=== PATIENT | female | born 1995 | race Caucasian/White ===

== ENCOUNTER 2023-07-19 05:55 | Emergency (ER) | payer OTHER ==
[~2023-07-19] VITALS: Ht 154.9 cm; Wt 63.5 kg
[2023-07-19 05:58] VITALS: O2SAT 100
[2023-07-19] MEDS ORDERED: LORazepam 2 MG/ML VIAL IVP ONE (06:00)
[2023-07-19] MEDS ORDERED: LORazepam 2 MG/ML VIAL ONE (06:00)
[2023-07-19 06:10] VITALS: BP 153/100; PULSE 59; RESP 13; TEMP 98; O2SAT 99
[2023-07-19] MEDS ORDERED: levETIRAcetam 100 MG/ML VIAL IV ONE (06:14)
[2023-07-19] MEDS: NACL 0.9% 1,000 ML IV ONE (06:16)
[2023-07-19] MEDS: ONDANSETRON 4 MG/2 ML VIAL IVP ONE ×2 (06:18→07:37)
[2023-07-19] MEDS: levETIRAcetam 1,000 MG in NACL 0.9% 100 ML IV ONE (06:18)
[2023-07-19] MEDS: LORazepam 2 MG/ML VIAL IM ONE (06:19)
[2023-07-19] MEDS: LORazepam 2 MG/ML VIAL IVP ONE (06:33)
[2023-07-19 06:43] LABS: BASOPHILS # (AUTO) 0.1 K/uL (0.00-0.22); BASOPHILS % (AUTO) 0.9 % (0.0-2.0); EOSINOPHILS # (AUTO) 0.4 K/uL (0-0.4); EOSINOPHILS % (AUTO) 3.1 % (0.0-4.0); HEMATOCRIT 44.7 % (36-48); HEMOGLOBIN 15.1 g/dL (12.0-16.0); LYMPHOCYTES # (AUTO) 2.7 K/uL (2.5-16.5); LYMPHOCYTES % (AUTO) 22.3 % (20.5-51.1); MEAN CORPUSCULAR HEMOGLOBIN 28 pg (27-31); MEAN CORPUSCULAR HGB CONC 34 g/dL (33-37); MEAN CORPUSCULAR VOLUME 83.3 fL (80-94); MONOCYTES # (AUTO) 0.7 K/uL (0.8-1.0); MONOCYTES % (AUTO) 5.9 % (1.7-9.3); NEUTROPHILS # (AUTO) 8.3 K/uL (1.8-7.7); NEUTROPHILS % (AUTO) 67.8 % (42.2-75.2); PLATELET COUNT (AUTO) 277 K/uL (140-450); RED BLOOD CELL COUNT(AUTO) 5.37 MIL/uL (4.20-5.40); RED CELL DISTRIBUTION WIDTH 12.9 % (11.6-13.7); WHITE BLOOD COUNT (AUTO) 12.2 K/uL (4.8-10.8)
[2023-07-19 06:54] LABS: ANION GAP 16.3 (8-16); CALCIUM 8.9 mg/dL (8.5-10.1); CARBON DIOXIDE 21.3 mmol/L (21-32); CREATININE 0.8 mg/dL (0.6-1.3); POTASSIUM 3.6 mmol/L (3.5-5.1)
[2023-07-19 07:10] LABS: CREATINE KINASE, TOTAL 99 U/L (26-192)
[2023-07-19 07:27] LABS: ALCOHOL, BLOOD < 3 mg/dL (<10)
[2023-07-19 07:31] LABS: FLU A ANTIGEN negative (NEGATIVE); FLU B ANTIGEN negative (NEGATIVE)
[2023-07-19 08:29] LABS: MAGNESIUM 1.8 mg/dL (1.8-2.4)
[2023-07-19 08:52] LABS: APPEARANCE,URINE CLEAR (CLEAR); BILIRUBIN,URINE NEGATIVE (NEGATIVE); BLOOD, URINE NEGATIVE (NEGATIVE); COLOR,URINE YELLOW (YELLOW); LEUKOCYTE ESTERASE ,URINE NEGATIVE (NEGATIVE); NITRITE, URINE NEGATIVE (NEGATIVE); PROTEIN,URINE NEGATIVE (NEGATIVE); UGLUCOSE NEGATIVE (NEGATIVE); UROBILINOGEN,URINE 0.2 EU/dL (0.2 - 1)
[2023-07-19 09:22] LABS: CANNABINOID, URINE POSITIVE ng/mL (NEG <=50); OPIATE, URINE POSITIVE ng/mL (NEG <=2000)
[2023-07-19 09:23] LABS: AMPHETAMINE, URINE NEGATIVE ng/ml (NEG <=1000); BARBITURATE, URINE NEGATIVE ng/ml (NEG <=200); BENZODIAZEPINE, URINE POSITIVE ng/mL (NEG <=200); COCAINE, URINE NEGATIVE ng/mL (NEG <=300); PHENCYCLIDINE SCREEN,URINE NEGATIVE ng/mL (NEG <=25)
[2023-07-19] MEDS ORDERED: LEVE1000 PO (12:58)
[2023-07-19 13:08] VITALS: BP 144/88; PULSE 69; RESP 17; TEMP 97.9; O2SAT 100
== END 2023-07-19 13:08 | disposition home or self-care (01) ==
LOC: MED 05:55
DX: R56.9 Unspecified convulsions (principal); F11.10 Opioid abuse, uncomplicated; Z20.822 Contact with and (suspected) exposure to COVID-19; Z91.148 Patient's other noncompliance with medication regimen for other reason; Z79.899 Other long term (current) drug therapy; Z88.0 Allergy status to penicillin; Z88.6 Allergy status to analgesic agent
CPT/HCPCS: 36415; 70450; 71045; 80048; 80305; 81003; 81025; 82550; 83735; 84100; 84484; 85025; 87426; 87804; 93005; 96365; 96372; 96375; 96376; 99285; G0482; J1953; J2060; J2405; J7030

== ENCOUNTER 2023-12-11 18:28 | Emergency (ER) | payer OTHER ==
[~2023-12-11] VITALS: Ht 162.6 cm; Wt 68.0 kg
[~2023-12-11 18:28] MED LIST: LEVE1000 PO
[2023-12-11 18:30] VITALS: BP 113/70; PULSE 83; RESP 13; TEMP 99; O2SAT 99
[2023-12-11] MEDS: levETIRAcetam 500 MG TAB PO ONE (18:58)
[2023-12-11] MEDS: LORazepam 1 MG TAB PO ONE (18:58)
[2023-12-11 19:30] VITALS: BP 113/70; PULSE 73; RESP 13; TEMP 99
[2023-12-11 19:35] VITALS: O2SAT 99
== END 2023-12-11 20:13 | disposition home or self-care (01) ==
LOC: MED 18:28
DX: G40.509 Epileptic seizures related to external causes, not intractable, without status epilepticus (principal); F41.9 Anxiety disorder, unspecified; Z79.899 Other long term (current) drug therapy; Z88.0 Allergy status to penicillin; Z88.6 Allergy status to analgesic agent
CPT/HCPCS: 99283

== ENCOUNTER 2024-02-26 16:26 | Inpatient (IN) | payer OTHER ==
[~2024-02-26] VITALS: Ht 162.6 cm; Wt 68.0 kg
[2024-02-26] MEDS ORDERED: LORazepam 2 MG/ML VIAL ONE (16:49)
[2024-02-26] MEDS ORDERED: ONDANSETRON 4 MG/2 ML VIAL ONE (16:53)
[2024-02-26] MEDS ORDERED: levETIRAcetam 100 MG/ML VIAL IV ONE (17:03)
[2024-02-26 17:04] VITALS: BP 130/69; PULSE 62; RESP 22; O2SAT 93
[2024-02-26 17:06] VITALS: O2SAT 98
[2024-02-26] MEDS: levETIRAcetam 1,500 MG in NACL 0.9% 100 ML IV ONE (17:16)
[2024-02-26 17:18] LABS: BASOPHILS % (AUTO) 0.5 % (0.0-2.0); EOSINOPHILS % (AUTO) 0.1 % (0.0-4.0); HEMATOCRIT 43.6 % (36-48); HEMOGLOBIN 14.4 g/dL (12.0-16.0); LYMPHOCYTES # (AUTO) 0.7 K/uL (2.5-16.5); MEAN CORPUSCULAR HEMOGLOBIN 28 pg (27-31); MEAN CORPUSCULAR HGB CONC 33 g/dL (33-37); MEAN CORPUSCULAR VOLUME 84.6 fL (80-94); MONOCYTES # (AUTO) 0.2 K/uL (0.8-1.0); MONOCYTES % (AUTO) 1.9 % (1.7-9.3); NEUTROPHILS # (AUTO) 8.1 K/uL (1.8-7.7); NEUTROPHILS % (AUTO) 89.9 % (42.2-75.2); PLATELET COUNT (AUTO) 244 K/uL (140-450); RED BLOOD CELL COUNT(AUTO) 5.15 MIL/uL (4.20-5.40)
[2024-02-26 17:28] LABS: LYMPHOCYTES % (AUTO) 7.6 % (20.5-51.1)
[2024-02-26 17:33] LABS: ANION GAP 13.8 (8-16); CALCIUM 8.4 mg/dL (8.5-10.1); CARBON DIOXIDE 23.4 mmol/L (21-32); CREATININE 0.7 mg/dL (0.6-1.3); POTASSIUM 3.2 mmol/L (3.5-5.1)
[2024-02-26 17:37] LABS: BILIRUBIN,DIRECT 0.1 mg/dL (0.0-0.3); TOTAL BILIRUBIN 0.5 mg/dL (0.0-1.0); TOTAL PROTEIN, SERUM 7.5 g/dL (6.4-8.2)
[2024-02-26 17:51] LABS: ACETAMINOPHEN < 0.5 ug/ml (10-30); ALCOHOL, BLOOD < 3 mg/dL (<10); SALICYLATE < 2.8 mg/dL (2.8-20.0)
[2024-02-26 18:05] LABS: AMPHETAMINE, URINE NEGATIVE ng/ml (NEG <=1000); BARBITURATE, URINE NEGATIVE ng/ml (NEG <=200); BENZODIAZEPINE, URINE POSITIVE ng/mL (NEG <=200); CANNABINOID, URINE POSITIVE ng/mL (NEG <=50); COCAINE, URINE NEGATIVE ng/mL (NEG <=300)
[2024-02-26 18:06] LABS: OPIATE, URINE NEGATIVE ng/mL (NEG <=2000); PHENCYCLIDINE SCREEN,URINE NEGATIVE ng/mL (NEG <=25)
[2024-02-26] MEDS: LORazepam 2 MG/ML VIAL IM STA (18:14)
[2024-02-26] MEDS ORDERED: MORPHINE SULFATE 4 MG/ML SYR IVP PRN (19:10)
[2024-02-26] MEDS ORDERED: HYDROcodone/APAP 5/325 MG 1 TAB TAB PO PRN (19:10)
[2024-02-26] MEDS ORDERED: MAGNESIUM OXIDE 400 MG TAB PO PRN (19:10)
[2024-02-26] MEDS ORDERED: ACETAMINOPHEN 325 MG TAB PO PRN (19:10)
[2024-02-26] MEDS ORDERED: POTASSIUM CHLORIDE 10 MEQ TABER PO PRN (19:10)
[2024-02-26] MEDS ORDERED: MAG SULF 2000 MG/WATER PREMIX 50 ML IV PRN (19:10)
[2024-02-26] MEDS: NACL 0.9% 1,000 ML IV SCH (19:52)
[2024-02-26 20:11] VITALS: O2SAT 98
[2024-02-26] MEDS ORDERED: levETIRAcetam 1,500 MG in NACL 0.9% 100 ML IV SCH (21:00)
[2024-02-26] MEDS ORDERED: WATER STERILE 10 ML MC ONE (21:20)
[2024-02-26] MEDS: OLANZapine 10 MG VIAL IM PRN (21:28)
[2024-02-26 22:30] VITALS: O2SAT 98
[2024-02-27 00:36] VITALS: O2SAT 98
[2024-02-27] MEDS: ONDANSETRON 4 MG/2 ML VIAL IVP PRN (01:27)
[2024-02-27] MEDS: KCL 20 MEQ IN 100 mL PREMIX 200 ML IV PRN (05:11)
[2024-02-27] MEDS: METOCLOPRAMIDE 10 MG/2 ML INJ VIAL IVP PRN (06:21)
[2024-02-27 07:15] LABS: BASOPHILS % (AUTO) 0.5 % (0.0-2.0); EOSINOPHILS % (AUTO) 0.1 % (0.0-4.0); HEMATOCRIT 44.2 % (36-48); HEMOGLOBIN 14.9 g/dL (12.0-16.0); LYMPHOCYTES # (AUTO) 1.2 K/uL (2.5-16.5); LYMPHOCYTES % (AUTO) 13.9 % (20.5-51.1); MEAN CORPUSCULAR HEMOGLOBIN 28 pg (27-31); MEAN CORPUSCULAR HGB CONC 34 g/dL (33-37); MEAN CORPUSCULAR VOLUME 84.3 fL (80-94); MONOCYTES # (AUTO) 0.5 K/uL (0.8-1.0); MONOCYTES % (AUTO) 5.9 % (1.7-9.3); NEUTROPHILS # (AUTO) 7.1 K/uL (1.8-7.7); NEUTROPHILS % (AUTO) 79.6 % (42.2-75.2); PLATELET COUNT (AUTO) 265 K/uL (140-450); RED BLOOD CELL COUNT(AUTO) 5.25 MIL/uL (4.20-5.40); RED CELL DISTRIBUTION WIDTH 12.7 % (11.6-13.7); WHITE BLOOD COUNT (AUTO) 8.9 K/uL (4.8-10.8)
[2024-02-27 07:30] LABS: MAGNESIUM 1.9 mg/dL (1.8-2.4); PHOSPHORUS 2.6 mg/dL (2.5-4.9)
[2024-02-27 08:34] VITALS: PULSE 58
[2024-02-27 09:08] LABS: ANION GAP 17.1 (8-16); CALCIUM 8.6 mg/dL (8.5-10.1); CARBON DIOXIDE 23.5 mmol/L (21-32); CREATININE 0.6 mg/dL (0.6-1.3); POTASSIUM 3.6 mmol/L (3.5-5.1)
[2024-02-27] MEDS: PANTOPRAZOLE 40 MG INJ VIAL IVP SCH (09:35)
[2024-02-27] MEDS: levETIRAcetam 500 MG TAB PO SCH (09:35)
[2024-02-27 10:19] VITALS: PULSE 58; RESP 16; O2SAT 98
[2024-02-27 12:00] VITALS: BP 160/96; PULSE 57; PULSE 59; RESP 12; TEMP 98.2; O2SAT 100
[2024-02-27] MEDS ORDERED: LEVE1000 PO (14:11)
[2024-02-27 15:30] VITALS: BP 160/96; PULSE 57; RESP 12; TEMP 98.2
[2024-02-27 16:00] VITALS: BP 159/98; PULSE 59; PULSE 63; RESP 16; TEMP 98.1; O2SAT 96
[2024-02-27] MEDS ORDERED: MEDS-TO-BEDS MC SCH (21:00)
== END 2024-02-27 18:55 | disposition left against medical advice (07) | DRG 53 ==
LOC: MED 16:26 → MTU 19:10
PROVIDERS: ADMIT Hospitalist; ATTEND Hospitalist
DX: G40.909 Epilepsy, unspecified, not intractable, without status epilepticus (principal); E87.1 Hypo-osmolality and hyponatremia; R45.851 Suicidal ideations; F12.10 Cannabis abuse, uncomplicated; F32.A Depression, unspecified; Z88.0 Allergy status to penicillin; Z88.8 Allergy status to other drugs, medicaments and biological substances; Z79.899 Other long term (current) drug therapy
CPT/HCPCS: 36415; 70450; 71045; 80048; 80076; 80305; 83690; 83735; 84100; 84702; 85025; 87081; 93005; G0480; G0482; J1953; J2060; J2405; J2470; J2765; J3480; J3490

== ENCOUNTER 2024-02-28 10:02 | Emergency (ER) | payer OTHER ==
[~2024-02-28] VITALS: Ht 170.2 cm; Wt 70.3 kg
[2024-02-28 10:10] VITALS: BP 114/73; PULSE 68; RESP 12; TEMP 98; O2SAT 97
[2024-02-28] MEDS ORDERED: levETIRAcetam 100 MG/ML VIAL IV ONE (10:24)
[2024-02-28] MEDS: levETIRAcetam 1,000 MG in NACL 0.9% 100 ML IV ONE (10:31)
[2024-02-28 11:17] LABS: CALCIUM 8.6 mg/dL (8.5-10.1); CARBON DIOXIDE 26.4 mmol/L (21-32); CREATININE 0.5 mg/dL (0.6-1.3); POTASSIUM 3.1 mmol/L (3.5-5.1)
[2024-02-28 11:22] LABS: ANION GAP 15.7 (8-16)
[2024-02-28] MEDS: LORazepam 2 MG/ML VIAL IVP ONE (12:10)
[2024-02-28 15:51] VITALS: BP 140/91; PULSE 57; RESP 20; TEMP 98.3; O2SAT 97
== END 2024-02-28 15:51 | disposition home or self-care (01) ==
LOC: MED 10:02
DX: G40.509 Epileptic seizures related to external causes, not intractable, without status epilepticus (principal); Z79.899 Other long term (current) drug therapy; Z88.0 Allergy status to penicillin; Z88.6 Allergy status to analgesic agent
CPT/HCPCS: 36415; 80048; 93005; 96365; 96375; 99285; J1953; J2060

== ENCOUNTER 2024-02-29 20:20 | Emergency (ER) | payer OTHER ==
[~2024-02-29] VITALS: Ht 160 cm; Wt 59.0 kg
[2024-02-29 20:23] VITALS: BP 146/92; PULSE 63; RESP 14; TEMP 98.2; O2SAT 97
[2024-02-29] MEDS: NACL 0.9% 1,000 ML IV ONE (21:35)
[2024-02-29] MEDS: ONDANSETRON 4 MG/2 ML VIAL IVP ONE (21:38)
[2024-02-29] MEDS: MORPHINE SULFATE 4 MG/ML SYR IVP ONE (22:28)
[2024-02-29 22:29] LABS: BASOPHILS % (AUTO) 0.5 % (0.0-2.0); EOSINOPHILS % (AUTO) 0.3 % (0.0-4.0); HEMATOCRIT 43.8 % (36-48); HEMOGLOBIN 14.7 g/dL (12.0-16.0); LYMPHOCYTES # (AUTO) 2.4 K/uL (2.5-16.5); MEAN CORPUSCULAR HEMOGLOBIN 28 pg (27-31); MEAN CORPUSCULAR HGB CONC 34 g/dL (33-37); MONOCYTES # (AUTO) 0.7 K/uL (0.8-1.0); MONOCYTES % (AUTO) 9.6 % (1.7-9.3); NEUTROPHILS # (AUTO) 4.3 K/uL (1.8-7.7); NEUTROPHILS % (AUTO) 57.6 % (42.2-75.2); PLATELET COUNT (AUTO) 289 K/uL (140-450); RED BLOOD CELL COUNT(AUTO) 5.22 MIL/uL (4.20-5.40); RED CELL DISTRIBUTION WIDTH 12.5 % (11.6-13.7); WHITE BLOOD COUNT (AUTO) 7.5 K/uL (4.8-10.8)
[2024-02-29 23:03] LABS: CALCIUM 8.5 mg/dL (8.5-10.1); CARBON DIOXIDE 24.2 mmol/L (21-32); CREATININE 0.8 mg/dL (0.6-1.3); POTASSIUM 3.2 mmol/L (3.5-5.1)
[2024-02-29 23:04] LABS: ALBUMIN 3.7 g/dL (3.4-5.0); TOTAL BILIRUBIN 0.6 mg/dL (0.0-1.0); TOTAL PROTEIN, SERUM 7.1 g/dL (6.4-8.2)
[2024-03-01 03:11] LABS: APPEARANCE,URINE CLEAR (CLEAR); BILIRUBIN,URINE 1+ (NEGATIVE); BLOOD, URINE 3+ (NEGATIVE); COLOR,URINE YELLOW (YELLOW); LEUKOCYTE ESTERASE ,URINE NEGATIVE (NEGATIVE); NITRITE, URINE NEGATIVE (NEGATIVE); PH,URINE 6.5 (5.0-9.0); PROTEIN,URINE NEGATIVE (NEGATIVE); UGLUCOSE NEGATIVE (NEGATIVE); UROBILINOGEN,URINE 0.2 EU/dL (0.2 - 1)
[2024-03-01 03:13] LABS: ICTOTEST POSITIVE (NEGATIVE)
[2024-03-01 03:15] LABS: WBC,URINE 0-5 /HPF (0-5)
[2024-03-01 03:16] LABS: BACTERIA,URINE 10-30 (MOD) /HPF (None Seen); MUCUS,URINE 1+ /LPF (None Seen); SQUAMOUS EPITHELIAL CELL,UR 4-10 (MOD) /LPF (0-3 (FEW))
[2024-03-01 03:29] LABS: AMPHETAMINE, URINE NEGATIVE ng/ml (NEG <=1000); BARBITURATE, URINE NEGATIVE ng/ml (NEG <=200); BENZODIAZEPINE, URINE POSITIVE ng/mL (NEG <=200); CANNABINOID, URINE POSITIVE ng/mL (NEG <=50); COCAINE, URINE NEGATIVE ng/mL (NEG <=300); OPIATE, URINE POSITIVE ng/mL (NEG <=2000); PHENCYCLIDINE SCREEN,URINE NEGATIVE ng/mL (NEG <=25)
[2024-03-01] MEDS: POTASSIUM CHLORIDE 10 MEQ TABER PO ONE (03:45)
[2024-03-01 04:40] VITALS: BP 146/92; PULSE 63; RESP 14; TEMP 98.2; O2SAT 97
[2024-03-02] MEDS ORDERED: ONDA-188 SL (14:02)
== END 2024-03-01 04:45 | disposition home or self-care (01) ==
LOC: MED 20:20
DX: E87.6 Hypokalemia (principal); R51.9 Headache, unspecified; R10.12 Left upper quadrant pain; Z86.69 Personal history of other diseases of the nervous system and sense organs; Z98.51 Tubal ligation status; Z79.899 Other long term (current) drug therapy; Z88.0 Allergy status to penicillin; Z88.6 Allergy status to analgesic agent
CPT/HCPCS: 36415; 80053; 80305; 81001; 81025; 83605; 83690; 83735; 85025; 87086; 96361; 96374; 96375; 99284; J2270; J2405; J7030

== ENCOUNTER 2024-03-02 10:52 | Emergency (ER) | payer OTHER ==
[~2024-03-02] VITALS: Ht 160 cm; Wt 54.4 kg
[2024-03-02 11:18] VITALS: BP 160/104; PULSE 90; RESP 11; TEMP 98.8; O2SAT 100
[2024-03-02 11:30] VITALS: O2SAT 98
[2024-03-02 11:34] VITALS: PULSE 94; O2SAT 100
[2024-03-02] MEDS: KETOROLAC 30 MG/ML VIAL IVP ONE (11:46)
[2024-03-02] MEDS: ONDANSETRON 4 MG/2 ML VIAL IVP ONE (11:47)
[2024-03-02 12:28] LABS: BASOPHILS % (AUTO) 0.5 % (0.0-2.0); EOSINOPHILS # (AUTO) 0.1 K/uL (0-0.4); EOSINOPHILS % (AUTO) 0.9 % (0.0-4.0); HEMATOCRIT 44.4 % (36-48); HEMOGLOBIN 15.1 g/dL (12.0-16.0); LYMPHOCYTES # (AUTO) 2.4 K/uL (2.5-16.5); LYMPHOCYTES % (AUTO) 23.9 % (20.5-51.1); MEAN CORPUSCULAR HEMOGLOBIN 28 pg (27-31); MEAN CORPUSCULAR HGB CONC 34 g/dL (33-37); MEAN CORPUSCULAR VOLUME 83.1 fL (80-94); MONOCYTES # (AUTO) 0.6 K/uL (0.8-1.0); MONOCYTES % (AUTO) 5.9 % (1.7-9.3); NEUTROPHILS # (AUTO) 6.9 K/uL (1.8-7.7); NEUTROPHILS % (AUTO) 68.8 % (42.2-75.2); PLATELET COUNT (AUTO) 391 K/uL (140-450); RED BLOOD CELL COUNT(AUTO) 5.35 MIL/uL (4.20-5.40); WHITE BLOOD COUNT (AUTO) 10.1 K/uL (4.8-10.8)
[2024-03-02] MEDS: HALOPERIDOL IM 5 MG/ML VIAL IM ONE (12:29)
[2024-03-02 12:41] LABS: ANION GAP 15.6 (8-16); CALCIUM 9.1 mg/dL (8.5-10.1); CARBON DIOXIDE 22.6 mmol/L (21-32); CREATININE 0.6 mg/dL (0.6-1.3); POTASSIUM 4.2 mmol/L (3.5-5.1)
[2024-03-02 13:07] LABS: ALBUMIN 3.9 g/dL (3.4-5.0); BILIRUBIN,DIRECT 0.1 mg/dL (0.0-0.3); TOTAL BILIRUBIN 0.4 mg/dL (0.0-1.0); TOTAL PROTEIN, SERUM 7.2 g/dL (6.4-8.2)
[2024-03-02] MEDS ORDERED: ONDA-188 SL (14:02)
== END 2024-03-02 14:17 | disposition home or self-care (01) ==
LOC: MED 10:52
DX: R56.9 Unspecified convulsions (principal); R11.2 Nausea with vomiting, unspecified; F12.10 Cannabis abuse, uncomplicated; R03.0 Elevated blood-pressure reading, without diagnosis of hypertension; F41.9 Anxiety disorder, unspecified; Z71.6 Tobacco abuse counseling; Z79.899 Other long term (current) drug therapy; Z88.0 Allergy status to penicillin; Z88.6 Allergy status to analgesic agent
CPT/HCPCS: 36415; 80048; 80076; 83690; 84703; 85025; 96372; 96374; 96375; 99284; J1630; J1885; J2405